=== PATIENT | female | born 1970 | race Caucasian/White ===

== ENCOUNTER 2020-07-01 14:17 | Observation (INO) | payer BC ==
[2020-07-01 14:45] VITALS: BMI 27.3
[2020-07-01] MEDS ORDERED: ZOLPIDEM TARTRATE 5 MG TABLET PO PRN (15:07)
[2020-07-01] MEDS ORDERED: ACETAMINOPHEN 500 MG TAB PO PRN (15:07)
[2020-07-01] MEDS ORDERED: MORPHINE 4 MG/ML SYR IV PRN (15:07)
[2020-07-01] MEDS ORDERED: ENOXAPARIN 40 MG/0.4 ML SQ SCH (16:00)
[2020-07-01] MEDS: PANTOPRAZOLE 40MG TABLET PO SCH (16:28)
[2020-07-01] MEDS: METOPROLOL TAR 25 MG TAB PO SCH (22:03)
[2020-07-02 03:21] VITALS: O2SAT 97
[2020-07-02 06:38] LABS: Absolute Lymphocytes (CBC) 1.8 K/uL (0.7-4.9); Basophils % 0.8 % (0-1.3); Hematocrit 47.1 % (36.0-45.0); Lymphocytes % 33.4 % (15.3-44.8); MPV 8.3 fL (7.6-11.3); RBC Red Blood Cell Count 5.26 M/uL (3.86-4.86)
[2020-07-02 06:49] LABS: Potassium 4.3 mmol/L (3.5-5.1)
[2020-07-02 08:32] VITALS: BP 127/59; TEMP 97.7
[2020-07-02] MEDS: PANTOPRAZOLE 40MG TABLET PO SCH (08:39)
[2020-07-02] MEDS: METOPROLOL TAR 25 MG TAB PO SCH (08:40)
[2020-07-02] MEDS ORDERED: ENOXAPARIN 40 MG/0.4 ML SQ SCH (09:00)
[2020-07-02] MEDS ORDERED: ASPIRIN EC 81 MG TAB PO SCH (09:00)
--- NOTE | 2020-07-02 13:37 | P.HP ---
Certification for Inpatient Patient admitted to: Observation With expected LOS: <2 Midnights Patient will require the following post-hospital care: None Practitioner: I am a practitioner with admitting privileges, knowledge of patient current condition, hospital course, and medical plan of care. Services: Services provided to patient in accordance with Admission requirements found in Title 42 Section 412.3 of the Code of Federal Regulations Patient History Date of Service: 07/01/20 Reason for admission: CHEST PAIN RULE OUT ACUTE CORONARY SYNDROME History of Present Illness: PATIENT IS A 49-YEAR-OLD FEMALE CAME TO THE HOSPITAL WITH CHEST PAIN. PATIENT WAS AT AN OUTSIDE EMERGENCY ROOM WHEN THE CHEST PAIN STARTED. THE WAS GETTING PROGRESSIVELY WORSE. INITIAL TROPONINS AND EKG WERE UNREMARKABLE. HER CHEST PAIN WENT FROM LEFT STERNAL REGION TO HER LEFT UPPER EXTREMITY. SHE HAS A HISTORY OF GASTROESOPHAGEAL REFLUX DISEASE BUT NO OTHER MEDICAL PROBLEMS. SHE HAS BEEN FEELING PRETTY GOOD SINCE SHE ARRIVED AT OUR HOSPITAL. CHEST PAIN WAXES AND WANES HOWEVER. AT THIS TIME WE WILL RULE HER OUT FOR ACUTE CORONARY SYNDROME. Allergies No Known Allergies Allergy (Unverified 07/01/20 14:44) Home Medications: Pantoprazole [Protonix Tab*] 1 tab PO DAILY 07/01/20 Aspirin [Aspirin EC 81 MG] 81 mg PO DAILY #30 tablet. 07/02/20 Atorvastatin Calcium [Lipitor] 40 mg PO DAILY #30 tablet 07/02/20 - Past Medical/Surgical History Has patient received pneumonia vaccine in the past: No Diabetic: No -: GERD -: Hiatal Hernia -: Empyema -: [id number]-1-2 yrs ago - Family History Father Medical History: Heart disease, Diabetes, Kidney disease Notes: 15 stents Mother History Unknown: Yes - Social History Smoking Status: Never smoker Alcohol use: Yes CD- Drugs: No Caffeine use: Yes Place of Residence: Home Review of Systems 10-point ROS is otherwise unremarkable Physical Examination - Vital Signs Temperature: 97.7 F Blood Pressure: 127/59 Pulse: 61 Respirations: 16 Pulse Ox (%): 97 - Physical Exam General: Alert, In no apparent distress, Oriented x3 HEENT: Atraumatic, PERRLA, Mucous membr. moist/pink, EOMI, Sclerae nonicteric Neck: Supple, 2+ carotid pulse no bruit, No LAD, Without JVD or thyroid abnormality Respiratory: Clear to auscultation bilaterally, Normal air movement Cardiovascular: Regular rate/rhythm, Normal S1 S2, No murmurs Gastrointestinal: Normal bowel sounds, Soft and benign, Non-distended, No tenderness Musculoskeletal: No clubbing, No swelling, No tenderness Integumentary: No rashes Neurological: Normal gait, Normal speech, Normal strength at 5/5 x4 extr, Normal tone, Normal affect Lymphatics: No axilla or inguinal lymphadenopathy - Studies Laboratory Data (last 24 hrs) 07/02/20 05:25: Triglycerides 185 H, Cholesterol 176, HDL Cholesterol 41, Cho lesterol/HDL Ratio 4.29 07/02/20 05:25: Sodium 141, Potassium 4.3, BUN 10, Creatinine 0.73, Glucose 91 07/02/20 05:25: WBC 5.5, Hgb 15.9 H, Hct 47.1 H, Plt Count 194 07/02/20 02:19: Troponin I < 0.02 07/01/20 18:16: Troponin I < 0.02 Assessment & Plan - Problems (Diagnosis) (1) Chest pain, rule out acute myocardial infarction Status: Acute - Plan 1. Serial troponins and EKG 2. Cardiology consultation 3. Echocardiogram and stress test possibly can get done as an outpatient pending cardiology evaluation. We will not have them available through the weekend 4. Anti-platelet therapy, anticoagulation, beta-austin, statin, and O2 as needed 5. IV morphine for pain 6. Nitro p.r.n. Discharge Plan: Home Plan to discharge in: 24 Hours - Advance Directives Does patient have a Living Will: No Does patient have a Durable POA for Healthcare: No - Code Status/Comfort Care Code Status Assessed: Yes Code Status: Full Code Critical Care: No Time Spent Managing PTS Care (In Minutes): 45
--- NOTE | 2020-07-02 13:38 | P.DS ---
Discharge Date: 07/02/20 Disposition: ROUTINE DISCHARGE Discharge Condition: GOOD Reason for Admission: CHEST PAIN RULE OUT ACUTE CORONARY SYNDROME Consultations: Cardiology - Problems (1) Chest pain, rule out acute myocardial infarction Status: Acute Brief History of Present Illness: PATIENT IS A 49-YEAR-OLD FEMALE CAME TO THE HOSPITAL WITH CHEST PAIN. PATIENT WAS AT AN OUTSIDE EMERGENCY ROOM WHEN THE CHEST PAIN STARTED. THE WAS GETTING PROGRESSIVELY WORSE. INITIAL TROPONINS AND EKG WERE UNREMARKABLE. HER CHEST PAIN WENT FROM LEFT STERNAL REGION TO HER LEFT UPPER EXTREMITY. SHE HAS A HISTORY OF GASTROESOPHAGEAL REFLUX DISEASE BUT NO OTHER MEDICAL PROBLEMS. SHE HAS BEEN FEELING PRETTY GOOD SINCE SHE ARRIVED AT OUR HOSPITAL. CHEST PAIN WAXES AND WANES HOWEVER. AT THIS TIME WE WILL RULE HER OUT FOR ACUTE CORONARY SYNDROME. Hospital Course: Patient's troponins and EKG have been unremarkable. Chest pain is resolved. At this time, patient is stable for discharge with outpatient follow-up with Cardiology for stress test and echocardiogram. Return to the ER if symptoms worsen. Vital Signs/Physical Exam: Temp Pulse Resp BP Pulse Ox 97.7 F 61 16 127/59 L 97 07/02/20 13:37 07/02/20 13:37 07/02/20 13:37 07/02/20 13:37 07/02/20 13:37 General: Alert, In no apparent distress, Oriented x3 Laboratory Data at Discharge: WBC 5.5 K/uL (4.3-10.9) 07/02/20 05:25 Hgb 15.9 g/dL (12.0-15.0) H 07/02/20 05:25 Hct 47.1 % (36.0-45.0) H 07/02/20 05:25 Plt Count 194 K/uL (152-406) 07/02/20 05:25 Sodium 141 mmol/L (136-145) 07/02/20 05:25 Potassium 4.3 mmol/L (3.5-5.1) 07/02/20 05:25 BUN 10 mg/dL (7-18) 07/02/20 05:25 Creatinine 0.73 mg/dL (0.55-1.3) 07/02/20 05:25 Glucose 91 mg/dL (74-106) 07/02/20 05:25 Troponin I < 0.02 ng/mL (0.0-0.045) 07/02/20 02:19 Triglycerides 185 mg/dL (<150) H 07/02/20 05:25 Cholesterol 176 mg/dL (<200) 07/02/20 05:25 HDL Cholesterol 41 mg/dL (40-60) 07/02/20 05:25 Cholesterol/HDL Ratio 4.29 07/02/20 05:25 Home Medications: Pantoprazole [Protonix Tab*] 1 tab PO DAILY 07/01/20 Aspirin [Aspirin EC 81 MG] 81 mg PO DAILY #30 tablet. 07/02/20 Atorvastatin Calcium [Lipitor] 40 mg PO DAILY #30 tablet 07/02/20 New Medications: Aspirin [Aspirin EC 81 MG] 81 mg PO DAILY #30 tablet. Atorvastatin Calcium [Lipitor] 40 mg PO DAILY #30 tablet Patient Discharge Instructions: OK TO DC IV AND DC HOME. FOLLOW-UP WITH PCP IN 1-2 WEEKS. CALL ME AT [phone] IF ANY QUESTIONS REGARDING HOSPITAL STAY. RETURN TO THE ER IF SYMPTOMS WORSENS. FOLLOW-UP WITH CARDIOLOGY IN 1-2 WEEKS Diet: AHA Activity: Fall precautions Time spent managing pt's care (in minutes): 35
--- NOTE | 2020-07-02 20:20 | CON ---
Date of Consultation: 07/01/2020 Reason For Consultation: Chest pain. History Of Present Illness: Ms. Anderson is a 49-year-old woman, who does have a family history of hea rt disease. Her father is a patient of mine. She also has a history of dyslipidemia and gastroesoph ageal reflux disease, for which she takes Protonix. She also takes aspirin and Lipitor. She is know n to have had a hiatal hernia with a recent dilatation of the esophagus, has had a history of GERD, h as had a history of empyema long time ago, and has had a history of ablation for an arrhythmia approx imately 10 years ago. She woke up with substernal chest pain that lasted for few hours, radiated to the left upper shoulder, was seen by Dr. Rolan Joel in [facility] emergency room. He was concerned en ough because of her risk factors to have her sent here for further admission and evaluation and treat ment. The patient has already been ruled out for [place]. She still has a little bit of discomfort in he r chest. Past Medical History: As stated above. Allergies: NONE. Review of Systems: Negative. Social History: Negative. Family History: Positive. Medications: Listed earlier. Physical Examination: General: Ms. Anderson is very pleasant. No acute distress. Vital Signs: Stable. Afebrile. HEENT: Negative. Neck: Supple. No bruit, lymphadenopathy, JVD, or thyromegaly. Chest: Clear to auscultation and percussion. Cardiac: Regular rhythm and rate. No murmurs, gallops, or rubs. Abdomen: Benign. Extremities: No clubbing, cyanosis, or edema. Diagnostic Data: Her EKG was unremarkable. Her chest x-ray was unremarkable. Her troponin was nega tive. Her cholesterol was normal. Her triglyceride was slightly elevated at 185. She had an HDL of 41 and a ratio 4.29. Impression And Plan: Atypical chest pain, most likely secondary to esophageal spasm, gastroesophagea l reflux disease, or possibly the hiatal hernia. Nevertheless, she has a family history of heart dis ease. She had dyslipidemia and I think would be very reasonable to have her do an ultrasound and a s tress Cardiolite in the near future to rule out any coronary artery disease. She has ruled out and I am comfortable with her going home whenever it is okay with Dr. Goddard. I would recommend that she do ubles her Protonix temporarily and maybe see her tobacco packer in the near future. ASHWINI/REGULO Voice ID: [id number] Report ID: [id number]
== END 2020-07-02 10:50 | disposition home or self-care (01) ==
LOC: 4TH 14:17
PROVIDERS: ADMIT Hospitalist; ATTEND Hospitalist
DX: R07.9 Chest pain, unspecified (principal); Z82.49 Family history of ischemic heart disease and other diseases of the circulatory system; E78.5 Hyperlipidemia, unspecified; K21.9 Gastro-esophageal reflux disease without esophagitis; Z79.82 Long term (current) use of aspirin; Z20.828 Contact with and (suspected) exposure to other viral communicable diseases; K44.9 Diaphragmatic hernia without obstruction or gangrene
CPT/HCPCS: 85025; 80048; 36415; 80061; 84484 ×2; U0002; G0379; G0378 ×3; J1650